=== PATIENT | male | born 1990 | race Caucasian/White ===

== ENCOUNTER 2017-02-24 15:17 | Emergency (ER) | payer OTHER ==
[~2017-02-24 15:17] MED LIST: BENADRYL25 M1 PO; NO MEDICATIONS
== END 2017-02-24 15:32 | disposition home or self-care (01) ==
LOC: CFTX 15:17
DX: L03.211 Cellulitis of face (principal); F17.210 Nicotine dependence, cigarettes, uncomplicated
CPT/HCPCS: 99282